=== PATIENT | female | born 1945 | race Caucasian/White ===

== ENCOUNTER 2019-01-21 15:55 | Emergency (ER) | payer MEDICARE, OTHER ==
--- NOTE | 2019-01-21 16:17 | ERPHSYRPT ---
- History of Present Illness Time Seen by Provider: 01/21/19 16:17 Source: patient Exam Limitations: no limitations Patient Subjective Stated Complaint: states had elevated blood sugar today. took her evening dm med at 3pm today Triage Nursing Assessment: ambulated to room per self. skin w/d, color normal, resp nonlabored. Physician History: c/o blood sugar running high around 400 today, took her 3 pm diabetes medicine. recently started on prednisone for ear problems two days ago Timing/Duration: today Associated Symptoms: denies symptoms Allergies/Adverse Reactions: No Known Drug Allergies Allergy (Verified 01/21/19 16:02) Home Medications: Carvedilol 25 mg PO DAILY 06/01/12 [History] Lisinopril/Hydrochlorothiazide [Lisinopril-Hctz 20-25 mg Tab] 30 mg PO DAILY [History] Potassium Gluconate 99 mg PO BID 08/14/15 [History] Acetaminophen [Tylenol Arthritis] 650 mg PO BID 01/21/19 [History] Alendronate Sodium 70 mg [Fosamax 70 MG] 70 mg PO Q7D@0600 01/21/19 [ History] Amlodipine Besylate 5 mg PO DAILY 01/21/19 [History] Ascorbic Acid 500 mg [Vitamin C 500 MG] 1,000 mg PO DAILY 01/21/19 [ History] Aspirin EC 325 mg [Ecotrin 325 MG] 325 mg PO HS 01/21/19 [History] Bisacodyl 5 mg [Dulcolax 5 mg] 5 mg PO BID 01/21/19 [History] Cannabidiol (Cbd) Extract [Epidiolex] 2 sprays PO DAILY 01/21/19 [History] Gabapentin 300 mg PO TID 01/21/19 [History] Glipizide [Glipizide ER] 10 mg PO DAILY 01/21/19 [History] Linagliptin [Tradjenta] 5 mg PO HS 01/21/19 [History] Loratadine 10 mg [Claritin 10 mg] 10 mg PO DAILY 01/21/19 [History] Magnesium Oxide 400 mg [Mag-Ox 400] 400 mg PO HS 01/21/19 [History] Meclizine HCl 12.5 mg PO BID 01/21/19 [History] Multivitamin/Folic Acid/Biotin [Hair, Skin and Nails Tablet] 1 each PO TID 01/21 [History] PANTOPRAZOLE 40 mg Tablet [Protonix 40MG Tablet] 40 mg PO QAM 01/21/19 [ History] Pediatric Multivitamin No.42 [Flintstones] 1 each PO DAILY 01/21/19 [History] Pitavastatin Calcium [Livalo] 4 mg PO HS 01/21/19 [History] Prednisone 20 mg [Deltasone 20 mg] 20 mg PO BID 01/21/19 [History] Hx Tetanus, Diphtheria Vaccination/Date Given: No Hx Influenza Vaccination/Date Given: Yes Hx Pneumococcal Vaccination/Date Given: Yes - Review of Systems Constitutional: No Fever, No Chills Eyes: No Symptoms Ears, Nose, & Throat: No Symptoms Respiratory: No Cough, No Dyspnea Cardiac: No Chest Pain, No Edema, No Syncope Abdominal/Gastrointestinal: No Abdominal Pain, No Nausea, No Vomiting, No Diarrhea Genitourinary Symptoms: No Dysuria Musculoskeletal: No Back Pain, No Neck Pain Skin: No Rash Neurological: No Dizziness, No Focal Weakness, No Sensory Changes Psychological: No Symptoms Endocrine: No Symptoms All Other Systems: Reviewed and Negative - Past Medical History Pertinent Past Medical History: Yes Neurological History: No Pertinent History Cardiac History: High Cholesterol, Hypertension Respiratory History: No Pertinent History Endocrine Medical History: Diabetes Type II Musculoskeletal History: Arthritis, Fractures, Osteoporosis GI Medical History: Diverticulitis - Past Surgical History Past Surgical History: Yes Gastrointestinal: Appendectomy, Cholecystectomy Female Surgical History: Hysterectomy, Tubal Ligation Other Surgical History: eye surg,retanal detachment, - Social History Smoking Status: Former smoker Exposure to second hand smoke: No Drug Use: none Patient Lives Alone: Yes - Female History Hx Now: No - Nursing Vital Signs Nursing Vital Signs: Initial Vital Signs Temperature 97 F 01/21/19 15:57 Pulse Rate 86 01/21/19 15:57 Respiratory Rate 16 01/21/19 15:57 Blood Pressure 153/67 01/21/19 15:57 O2 Sat by Pulse Oximetry 96 01/21/19 15:57 Pain Scale Pain Intensity 0 - Physical Exam General Appearance: no apparent distress, alert Eye Exam: PERRL/EOMI, eyes nml inspection Ears, Nose, Throat Exam: normal ENT inspection, TMs normal, pharynx normal, moist mucous membranes Neck Exam: normal inspection, non-tender, supple, full range of motion Respiratory Exam: normal breath sounds, lungs clear, No respiratory distress Cardiovascular Exam: regular rate/rhythm, normal heart sounds, normal peripheral pulses Gastrointestinal/Abdomen Exam: soft, normal bowel sounds, No tenderness, No mass Back Exam: normal inspection, normal range of motion, No CVA tenderness, No vertebral tenderness Extremity Exam: normal inspection, normal range of motion, pelvis stable Neurologic Exam: alert, oriented x 3, cooperative, normal mood/affect, nml cerebellar function, nml station & gait, sensation nml, No motor deficits Skin Exam: normal color, warm, dry, No rash Lymphatic Exam: No adenopathy SpO2: 96 - Course Nursing assessment & vital signs reviewed: Yes Ordered Tests: Active Orders 24 hr Category Date Time Status CBC W DIFF Stat Lab 01/21/19 17:10 Completed CMP Stat Lab 01/21/19 17:10 Completed Medication Summary Discontinued Medications Generic Name Dose Route Start Last Admin Trade Name Donnieq PRN Reason Stop Dose Admin Sodium Chloride 1,000 mls @ 999 mls/hr 01/21/19 16:24 01/21/19 17:30 Sodium Chloride 0.9% 1000 Ml IV 01/21/19 17:24 Infused .Q1H1M STA Infusion Sodium Chloride Confirm 01/21/19 16:27 Sodium Chloride 0.9% 1000 Ml Administered 01/21/19 16:28 Dose 1,000 mls @ ud .ROUTE .STK-MED ONE Insulin Human Regular 10 unit 01/21/19 16:24 01/21/19 16:29 Novolin R IV 01/21/19 16:25 10 unit STAT ONE Administration Insulin Human Regular Confirm 01/21/19 16:26 Novolin R Administered 01/21/19 16:27 Dose 10 unit .ROUTE .STK-MED ONE Insulin Human Regular 5 unit 01/21/19 17:38 01/21/19 17:41 Novolin R IV 01/21/19 17:39 5 unit STAT ONE Administration Insulin Human Regular Confirm 01/21/19 17:40 Novolin R Administered 01/21/19 17:41 Dose 5 unit .ROUTE .STK-MED ONE Lab/Rad Data: Laboratory Result Diagrams 01/21/19 17:10 01/21/19 17:10 Laboratory Results 01/21/19 01/21/19 Range/Units 17:10 17:10 WBC 12.4 H (4.0-10.5) K/mm3 RBC 3.91 L (4.1-5.4) M/mm3 Hgb 12.5 (12.0-16.0) gm/dl Hct 37.4 (35-47) % MCV 95.7 (78-100) fl MCH 31.9 (26-32) pg MCHC 33.4 (32-36) g/dl RDW 12.8 (11.5-14.0) % Plt Count 265 (150-450) K/mm3 MPV 11.3 H (6-9.5) fl Gran % 81.3 H (36.0-66.0) % Eos # (Auto) 0.01 (0-0.5) Absolute Lymphs (auto) 1.58 (1.0-4.6) Absolute Monos (auto) 0.72 (0.0-1.3) Lymphocytes % 12.7 L (24.0-44.0) % Monocytes % 5.8 (0.0-12.0) % Eosinophils % 0.1 (0.00-5.0) % Basophils % 0.1 (0.0-0.4) % Absolute Granulocytes 10.11 H (1.4-6.9) Basophils # 0.01 (0-0.4) Sodium 136 L (137-145) mmol/L Potassium 3.9 (3.5-5.1) mmol/L Chloride 101 (98-107) mmol/L Carbon Dioxide 25 (22-30) mmol/L Anion Gap 14.5 (5-15) MEQ/L BUN 17 (7-17) mg/dL Creatinine 0.85 (0.52-1.04) mg/dL Estimated GFR > 60.0 ML/MIN Glucose 375 H (74-106) mg/dL Calcium 9.4 (8.4-10.2) mg/dL Total Bilirubin 0.50 (0.2-1.3) mg/dL AST 27 (14-36) U/L ALT 32 (0-35) U/L Alkaline Phosphatase 84 (38-126) U/L Serum Total Protein 7.3 (6.3-8.2) g/dL Albumin 4.1 (3.5-5.0) g/dL - Progress Progress: improved Counseled pt/family regarding: lab results, diagnosis, need for follow-up - Departure Departure Disposition: Home Clinical Impression: Hyperglycemia, drug-induced Hyperglycemia due to type 2 diabetes mellitus Qualifiers: Diabetes mellitus intermodal owner operator truck driver insulin use: without intermodal owner operator truck driver use Qualified Code(s ): E11.65 - Type 2 diabetes mellitus with hyperglycemia Condition: Stable Critical Care Time: No Referrals: EDI WHELAN [Primary Care Provider] - Instructions: Hyperglycemia, Adult (DC), Steroid Medicines Additional Instructions: OLLIEGARY MCCLURE was seen on 01/21/19 n the Emergency Room. At that time you were treated for an emergent condition, during your visit Laboratory, Radiology and/or other procedures may have been ordered. It is very important that you follow-up with your Primary Care Physician EDI WHELAN within the next 24-48 hours to review your Emergency Room visit and the final results of testing that was ordered. Some test results such as Urine Cultures, Blood Cultures, and other cultures if ordered will not be finalized for 24-48 hours. If you do not have a Primary Care Provider please call the medical records department at [phone] ext [phone] to obtain a copy of your results or you may sign into our patient portal to obtain these results by visiting us @ [email or web address] and completing the following steps: 1. Click on the Patient Portal link 2. Click the Patient Self Enrollment Link to complete the enrollment form and entering your 3. Once the enrollment form is completed you will receive an email with a temporary ID and password at the email address you provided. 4. Next choose a user name and password. Your user name must be at least 4 characters long and your password must be at least 4 characters long. 5. Choose a security question from the list and provide your answer to the question. If you already have signed into the Health Portal you may access your Health Care Information 05/10 by the following steps: 1. Login to our website @ [email or web address] 2. Enter your original user name and password. FAQS The [facility] Health Portal is an online tool that contains your Lab Results, Radiology Reports, Visit History, Discharge Instructions and Health Summary Lab and Radiology Results will not be available for 72 hours on the portal. The Portal is a secure site, passwords are encryted and URLs are re-written so they cannot be copied and pasted. You and authorized family members are the only ones who can access your Portal. Also there is a timeout feature that protects your information if you leave the Portal page open. If you have technical difficulty please use the Contact Us link on the page this will allow you to submit any questions you have regarding the Portal or you may contact the Medical Record Department at [phone] ext [phone]. Discharge/Care Plan GARY LEVIN was seen on 01/21/19 in the Emergency Room. The patient was counseled regarding Diagnosis,Lab results, Imaging studies, need for follow up and when to return to the Emergency Room. Prescriptions given: Discharge Note I have spoken with the patient and/or caregivers. I have explained the patient' s condition, diagnosis and treatment plan based on the information available to me at this time. I have answered the patient's and/or caregiver's questions and addressed any concerns. The patient and/or caregivers have as good understanding of the patient's diagnosis, condition and treatment plan as can be expected at this point. The vital signs have been stable. The patient's condition is stable and appropriate for discharge from the emergency department. The patient will pursue further outpatient evaluation with the primary care physician or other designated or consulting physician as outlined in the discharge instructions. The patient and/or caregivers are agreeable to this plan of care and follow-up instructions have been explained in detail. The patient and/or caregivers have received these instruction. The patient/and or caregivers are aware that any significant change in condition or worsening of symptoms should prompt an immediate return to this or the closest emergency department or call 911.
[2019-01-21] MEDS ORDERED: Sodium Chloride 0.9% 1000 ML 1,000 ML IV STA (16:24)
[2019-01-21] MEDS ORDERED: NovoLIN R IV ONE ×2 (16:24→17:38)
[2019-01-21] MEDS ORDERED: NovoLIN R ONE ×2 (16:26→17:40)
[2019-01-21] MEDS ORDERED: Sodium Chloride 0.9% 1000 ML 1,000 ML ONE (16:27)
[2019-01-21 17:17] LABS: Absolute Neutrophil Ct (ANC) 10.11 (1.4-6.9); BASOPHIL % 0.1 % (0.0-0.4); Basophil (Absolute #) 0.01 (0-0.4); Eosinophil % 0.1 % (0.00-5.0); Eosinophil (Absolute #) 0.01 (0-0.5); Hematocrit 37.4 % (35-47); Hemoglobin 12.5 gm/dl (12.0-16.0); Lymphocyte (Absolute #) 1.58 (1.0-4.6); Lymphocytes % 12.7 % (24.0-44.0); Mean Cell Volume 95.7 fl (78-100); Mean Corpuscular Hemoglobin 31.9 pg (26-32); Mean Corpuscular Hgb Concent. 33.4 g/dl (32-36); Mean Platelet Volume 11.3 fl (6-9.5); Monocyte (Absolute #) 0.72 (0.0-1.3); Monocytes % 5.8 % (0.0-12.0); Neutrophil % 81.3 % (36.0-66.0); Platelet Count 265 K/mm3 (150-450); Red Blood Count 3.91 M/mm3 (4.1-5.4); Red Cell Distribution Width 12.8 % (11.5-14.0); White Blood Count 12.4 K/mm3 (4.0-10.5)
[2019-01-21 17:26] LABS: ALBUMIN 4.1 g/dL (3.5-5.0); ALKALINE PHOSPHATASE 84 U/L (38-126); ANION GAP 14.5 MEQ/L (5-15); BLOOD UREA NITROGEN 17 mg/dL (7-17); CHLORIDE 101 mmol/L (98-107); Calcium 9.4 mg/dL (8.4-10.2); Carbon Dioxide 25 mmol/L (22-30); Creatinine 1 0.85 mg/dL (0.52-1.04); Glucose 375 mg/dL (74-106); Potassium 3.9 mmol/L (3.5-5.1); SGOT/AST 27 U/L (14-36); SGPT/ALT 32 U/L (0-35); SODIUM 136 mmol/L (137-145); Total Protein 7.3 g/dL (6.3-8.2)
[2019-01-21 17:59] VITALS: BP 108/53; PULSE 82; O2SAT 97
== END 2019-01-21 18:14 | disposition home or self-care (01) ==
LOC: ED 15:55
DX: E11.65 Type 2 diabetes mellitus with hyperglycemia (principal); Z79.899 Other long term (current) drug therapy
CPT/HCPCS: 36000; 36415; 80053; 82962; 85025; 96360; 96374; 96375; 96376; 99284; A9270-GY

== ENCOUNTER 2020-03-30 08:33 | Emergency (ER) | payer MEDICARE, OTHER ==
[2020-03-30] MEDS ORDERED: TORAdol 30 mg Injection IM ONE (08:46)
[2020-03-30] MEDS ORDERED: TORAdol 30 mg Injection ONE (08:48)
--- NOTE | 2020-03-30 10:42 | ERPHSYRPT ---
- History of Present Illness Time Seen by Provider: 03/30/20 08:40 Patient Subjective Stated Complaint: fall-left hip, knee and leg pain Triage Nursing Assessment: Patient brought back to ED via w/c and transferred to bed with assist of 1. Patient A+O X3. Patient's skin pink, warm and dry. Patient complains of left hip, left knee and left lower leg pain 8/10 constant aching. Patient states she tripped fell yesterday around lunchtime falling on her right side causing her left leg to go straight in the air. Patient unable to bear weight. No visible injuries noted to left leg. No shortening or rotating of extremity noted. Physician History: 74 years old female presented in the ER with chief complaint of fall yesterday when she tripped and fell on right hip. Patient report her left lower extremity went up in the ear. Did not hit her head. No loss of consciousness. She has this bruise contusion on the right hip but is having very painful movements at left hip causing it difficult to have weightbearing. Did not hit her left hip directly. No back pain. No numbness tingling weakness of lower extremities. No loss of bowel or bladder control. Occurred: yesterday Reason for Fall: tripped Injuries/Pain Location: lower extremity Loss of Consciousness: no loss of consciousness Quality: sharpness Severity of Pain-Max: severe Severity of Pain-Current: severe Modifying Factors: Improves With: immobilization, rest. Worsens With: movement Associated Symptoms (Fall): extremity injury, trouble walking, No back pain, No chest pain, No dizziness, No headache, No lightheadedness, No muscle spasms, No nausea, No neck pain, No shortness of breath, No slurred speech, No vision changes Allergies/Adverse Reactions: No Known Drug Allergies Allergy (Verified 03/30/20 08:38) Home Medications: Carvedilol 25 mg PO DAILY 06/01/12 [History] Lisinopril/Hydrochlorothiazide [Lisinopril-Hctz 20-25 mg Tab] 30 mg PO DAILY 06/01/12 [History] Potassium Gluconate 99 mg PO BID 08/14/15 [History] Acetaminophen [Tylenol Arthritis] 650 mg PO BID 01/21/19 [History] Alendronate Sodium 70 mg [Fosamax 70 MG] 70 mg PO Q7D@0600 01/21/19 [History] Amlodipine Besylate 5 mg PO DAILY 01/21/19 [History] Ascorbic Acid 500 mg [Vitamin C 500 MG] 1,000 mg PO DAILY 01/21/19 [History] Aspirin EC 325 mg [Ecotrin 325 MG] 325 mg PO HS 01/21/19 [History] Bisacodyl 5 mg [Dulcolax 5 mg] 5 mg PO BID 01/21/19 [History] Cannabidiol (Cbd) [Epidiolex] 2 sprays PO DAILY 01/21/19 [History] Gabapentin 300 mg PO TID 01/21/19 [History] Glipizide [Glipizide ER] 10 mg PO DAILY 01/21/19 [History] Linagliptin [Tradjenta] 5 mg PO HS 01/21/19 [History] Loratadine 10 mg [Claritin 10 mg] 10 mg PO DAILY 01/21/19 [History] Magnesium Oxide 400 mg [Mag-Ox 400] 400 mg PO HS 01/21/19 [History] Meclizine HCl 12.5 mg PO BID 01/21/19 [History] Multivitamin/Folic Acid/Biotin [Hair, Skin and Nails Tablet] 1 each PO TID 01/21/19 [History] PANTOPRAZOLE 40 mg Tablet [Protonix 40MG Tablet] 40 mg PO QAM 01/21/19 [History] Pediatric Multivitamin No.42 [Flintstones] 1 each PO DAILY 01/21/19 [History] Pitavastatin Calcium [Livalo] 4 mg PO HS 01/21/19 [History] Prednisone 20 mg [Deltasone 20 mg] 20 mg PO BID 01/21/19 [History] Hx Tetanus, Diphtheria Vaccination/Date Given: No Hx Influenza Vaccination/Date Given: Yes Hx Pneumococcal Vaccination/Date Given: Yes Immunizations Up to Date: Yes Travel Risk - International Travel Have you traveled outside of the country in past 3 weeks: No - Coronavirus Screening Are you exhibiting any of the following symptoms?: No Close contact with a COVID-19 positive Pt in past 14-21 Days: No - Review of Systems Constitutional: No Symptoms Eyes: No Symptoms Ears, Nose, & Throat: No Symptoms Respiratory: No Symptoms Cardiac: No Symptoms Abdominal/Gastrointestinal: No Symptoms Genitourinary Symptoms: No Symptoms Musculoskeletal: Injury Skin: Rash Neurological: No Symptoms Psychological: No Symptoms Endocrine: No Symptoms Hematologic/Lymphatic: No Symptoms Immunological/Allergic: No Symptoms - Past Medical History Pertinent Past Medical History: Yes Neurological History: No Pertinent History Cardiac History: High Cholesterol, Hypertension Respiratory History: No Pertinent History Endocrine Medical History: Diabetes Type II Musculoskeletal History: Arthritis, Fractures, Osteoporosis GI Medical History: Diverticulitis - Past Surgical History Past Surgical History: Yes Gastrointestinal: Appendectomy, Cholecystectomy Female Surgical History: Hysterectomy, Tubal Ligation Other Surgical History: eye surg,retanal detachment, - Social History Smoking Status: Former smoker Exposure to second hand smoke: No Drug Use: none Patient Lives Alone: Yes - Female History Hx Now: No - Nursing Vital Signs Nursing Vital Signs: Initial Vital Signs Temperature 97.9 F 03/30/20 08:38 Pulse Rate 78 03/30/20 08:38 Respiratory Rate 18 03/30/20 08:38 Blood Pressure 134/80 03/30/20 08:38 O2 Sat by Pulse Oximetry 95 03/30/20 08:38 Pain Scale Pain Intensity 7 - Jody Coma Score Best Eye Response ([place]): (4) open spontaneously Best Verbal Response ([place]): (5) oriented Best Motor Response ([place]ody): (6) obeys commands [place] Total: 15 - Physical Exam General Appearance: no apparent distress Head Injury: no evidence of injury Eye Exam: PERRL/EOMI, eyes nml inspection, scleral icterus ENT Exam: airway nml, No evidence of ENT injury Neck Exam: supple, trachea midline, full range of motion, normal alignment, normal inspection Respiratory/Chest Exam: normal breath sounds, respiratory distress, No chest tenderness Cardiovascular Exam: normal heart sounds, regular rate/rhythm Gastrointestinal Exam: soft, normal bowel sounds, No tenderness Back Exam: normal inspection, normal range of motion, No CVA tenderness Extremity Exam: contusions (Right hip), hip tenderness (Right and left hips), pain with movement (Hips), tenderness, other (No pain with movements of her right hip. Painful movements at the left hip. Movements of left hip are limited due to pain. Point tenderness greater trochanteric area), No calf tenderness, No weight bearing Neurologic Exam: alert, oriented x 3, cooperative Skin Exam: normal color SpO2 Interpretation: normal SpO2: 95 O2 Delivery: Room Air Ordered Tests: Active Orders 24 hr Category Date Time Status HIP GISELA (4V) INCL PELV IF DONE Stat Exams 03/30/20 09:31 Taken Medication Summary Discontinued Medications Generic Name Dose Route Start Last Admin Trade Name Rosita PRN Reason Stop Dose Admin Ketorolac Tromethamine 30 mg 03/30/20 08:46 03/30/20 08:51 Toradol 30 Mg Injection IM 03/30/20 08:47 30 mg STAT ONE Administration Ketorolac Tromethamine Confirm 03/30/20 08:48 Toradol 30 Mg Injection Administered 03/30/20 08:49 Dose 30 mg .ROUTE .STK-MED ONE - Progress Progress: improved, pain not gone completely Progress Note: 03/30/20 10:40 She is given Toradol as patient does not want any narcotic pain medication, on reevaluation her pain is better but not completely improved. X-rays did not show any obvious fracture dislocation. I believe patient has a strain on the left hip and contusion on the right hip. Recommended ice, Tylenol ibuprofen as needed, weightbearing as tolerated and using walker. Outpatient follow-up with Ortho clinic for reevaluation. - Departure Departure Disposition: Home Clinical Impression: Contusion of right hip Qualifiers: Encounter type: initial encounter Qualified Code(s): S70.01XA - Contusion of right hip, initial encounter Strain of left hip Qualifiers: Encounter type: initial encounter Qualified Code(s): S76.012A - Strain of muscle, fascia and tendon of left hip, initial encounter Fall Qualifiers: Encounter type: initial encounter Qualified Code(s): W19.XXXA - Unspecified fall, initial encounter Condition: Stable Critical Care Time: No Referrals: EDI WHELAN [Primary Care Provider] - Follow Up with PCP/3 days OTILIA CASTRO NP [NON-STAFF PHY W/O PRIVILEGES] - (In 2 days for reevaluation) Instructions: Contusion (DC), Preventing Falls Additional Instructions: Apply ice. Take Tylenol/ibuprofen as needed for pain. Use walker all the time for ambulation. Weightbearing only as tolerated. Follow-up with primary care and Ortho clinic for reevaluation in 2 days/early Wednesday morning. Return to ER for worsening pain, difficulty movements etc.
[2020-03-30 11:31] VITALS: BP 115/57; PULSE 70; O2SAT 94
--- NOTE | 2020-03-30 17:01 | XRAY ---
Indication: Pain following fall. Comparison: None AP pelvis and 2 view left and right hip demonstrates bilateral greater trochanteric spurring/heterotopic ossifications, mild lower lumbar degenerative spondylosis, and a few right pelvic phleboliths all similar in appearance to CT abdomen/pelvis August 14, 2015. No other bony, articular, or soft tissue abnormalities. Comment: Preliminary interpretation was made by [facility]. No critical discrepancy.
== END 2020-03-30 11:35 | disposition home or self-care (01) ==
LOC: ED 08:33
DX: S70.01XA Contusion of right hip, initial encounter (principal); S76.012A Strain of muscle, fascia and tendon of left hip, initial encounter; M25.552 Pain in left hip; M25.562 Pain in left knee; M79.605 Pain in left leg; W01.0XXA Fall on same level from slipping, tripping and stumbling without subsequent striking against object, initial encounter
CPT/HCPCS: 73522; 96372; 99284; J1885

== ENCOUNTER 2021-03-09 08:44 | Emergency (ER) | payer MEDICARE, OTHER ==
--- NOTE | 2021-03-09 08:57 | ERPHSYRPT ---
- History of Present Illness Time Seen by Provider: 03/09/21 08:57 Source: patient Exam Limitations: no limitations Physician History: This is a 75-year-old obese white female patient of Dr. Varner who has recurrent urinary tract infections. She is having dysuria, suprapubic tenderness and flank pain. This started 2 days ago the patient began using [id number] Azo products. Patient has a history of gastroesophageal reflux disease, hypertension and diabetes. She denies chest pain. She denies shortness of breath. She is convinced that this is a urinary tract infection and does not want extensive work-up if the urinalysis comes back positive. Timing/Duration: day(s) (2) Activites at Onset: none Quality: burning Onset Location: suprapubic, generalized flank Severity of Pain-Max: mild Severity of Pain-Current: mild Sexual intercourse history: non-contributory Modifying Factors: Improves With: nothing Associated Symptoms: dysuria, urinary frequency, No fever, No chills Allergies/Adverse Reactions: No Known Drug Allergies Allergy (Verified 03/09/21 09:23) Home Medications: Carvedilol 25 mg PO DAILY 06/01/12 [History] Lisinopril/Hydrochlorothiazide [Lisinopril-Hctz 20-25 mg Tab] 30 mg PO DAILY 06/01/12 [History] Potassium Gluconate 99 mg PO BID 08/14/15 [History] Acetaminophen [Tylenol Arthritis] 650 mg PO BID 01/21/19 [History] Alendronate Sodium 70 mg [Fosamax 70 MG] 70 mg PO Q7D@0600 01/21/19 [History] Amlodipine Besylate 5 mg PO DAILY 01/21/19 [History] Ascorbic Acid 500 mg [Vitamin C 500 MG] 1,000 mg PO DAILY 01/21/19 [History] Aspirin EC 325 mg [Ecotrin 325 MG] 325 mg PO HS 01/21/19 [History] Bisacodyl 5 mg [Dulcolax 5 mg] 5 mg PO BID 01/21/19 [History] Cannabidiol (Cbd) [Epidiolex] 2 sprays PO DAILY 01/21/19 [History] Gabapentin 300 mg PO TID 01/21/19 [History] Glipizide [Glipizide ER] 10 mg PO DAILY 01/21/19 [History] Linagliptin [Tradjenta] 5 mg PO HS 01/21/19 [History] Loratadine 10 mg [Claritin 10 mg] 10 mg PO DAILY 01/21/19 [History] Magnesium Oxide 400 mg [Mag-Ox 400] 400 mg PO HS 01/21/19 [History] Meclizine HCl 12.5 mg PO BID 01/21/19 [History] Multivitamin/Folic Acid/Biotin [Hair, Skin and Nails Tablet] 1 each PO TID 01/21/19 [History] PANTOPRAZOLE 40 mg Tablet [Protonix 40MG Tablet] 40 mg PO QAM 01/21/19 [History] Pediatric Multivitamin No.42 [Flintstones] 1 each PO DAILY 01/21/19 [History] Pitavastatin Calcium [Livalo] 4 mg PO HS 01/21/19 [History] Prednisone 20 mg [Deltasone 20 mg] 20 mg PO BID 01/21/19 [History] Chlorthalidone 12.5 mg PO DAILY 03/09/21 [History] Isosorbide Mononitrate 30 mg [Imdur 30 MG] 30 mg PO DAILY 03/09/21 [History] Hx Tetanus, Diphtheria Vaccination/Date Given: No Hx Influenza Vaccination/Date Given: Yes Hx Pneumococcal Vaccination/Date Given: Yes Travel Risk - International Travel Have you traveled outside of the country in past 3 weeks: No - Coronavirus Screening Are you exhibiting any of the following symptoms?: No Close contact with a COVID-19 positive Pt in past 14-21 Days: No - Review of Systems Constitutional: No Symptoms Eyes: No Symptoms Ears, Nose, & Throat: No Symptoms Respiratory: No Symptoms Cardiac: No Symptoms Abdominal/Gastrointestinal: Abdominal Pain (Mild suprapubic) Genitourinary Symptoms: Dysuria, Frequency, Flank Pain (Bilateral) Musculoskeletal: No Symptoms Skin: No Symptoms Neurological: No Symptoms Psychological: No Symptoms Endocrine: No Symptoms Hematologic/Lymphatic: No Symptoms Immunological/Allergic: No Symptoms All Other Systems: Reviewed and Negative - Past Medical History Pertinent Past Medical History: Yes Neurological History: No Pertinent History Cardiac History: High Cholesterol, Hypertension Respiratory History: No Pertinent History Endocrine Medical History: Diabetes Type II Musculoskeletal History: Arthritis, Fractures, Osteoporosis GI Medical History: Diverticulitis - Past Surgical History Past Surgical History: Yes Gastrointestinal: Appendectomy, Cholecystectomy Female Surgical History: Hysterectomy, Tubal Ligation Other Surgical History: eye surg,retanal detachment, - Social History Smoking Status: Former smoker Exposure to second hand smoke: No Drug Use: none Patient Lives Alone: Yes - Nursing Vital Signs Nursing Vital Signs: Initial Vital Signs Temperature 98.0 F 03/09/21 08:54 Pulse Rate 83 03/09/21 08:54 Respiratory Rate 20 03/09/21 08:54 Blood Pressure 134/60 03/09/21 08:54 O2 Sat by Pulse Oximetry 97 03/09/21 08:54 Pain Scale Pain Intensity 6 - Physical Exam General Appearance: no apparent distress, alert, anxiety, obese Eye Exam: PERRL/EOMI, eyes nml inspection Ears, Nose, Throat Exam: normal ENT inspection, moist mucous membranes Neck Exam: normal inspection, non-tender, supple, full range of motion Respiratory Exam: normal breath sounds, lungs clear, airway intact, No chest tenderness, No respiratory distress Cardiovascular Exam: regular rate/rhythm, normal heart sounds, normal peripheral pulses Gastrointestinal/Abdomen Exam: soft, normal bowel sounds, tenderness (Very mild tenderness in the suprapubic region to palpation.), No guarding, No pulsatile mass, No rebound Pelvic Exam: not done Rectal Exam: not done Back Exam: normal inspection, normal range of motion, CVA tenderness (Mild bilateral), No vertebral tenderness Extremity Exam: normal inspection, normal range of motion, pelvis stable Neurologic Exam: alert, oriented x 3, cooperative, credit manager II-XII nml as tested, normal mood/affect, nml cerebellar function, nml station & gait, sensation nml Skin Exam: normal color, warm, dry Lymphatic Exam: No adenopathy SpO2 Interpretation: normal O2 Delivery: Room Air - Course Nursing assessment & vital signs reviewed: Yes Ordered Tests: Active Orders 24 hr Category Date Time Status CULTURE,URINE Stat Lab 03/09/21 09:26 Received UA W/RFX UR CULTURE Stat Lab 03/09/21 09:26 Completed Medication Summary Discontinued Medications Generic Name Dose Route Start Last Admin Trade Name Freq PRN Reason Stop Dose Admin Ceftriaxone Sodium 1,000 mg 03/09/21 10:26 Ceftriaxone Sodium 1000 Mg Inj Vial IM 03/09/21 10:27 STAT ONE Levofloxacin 500 mg 03/09/21 10:25 Levofloxacin 500 Mg Tablet PO 03/09/21 10:26 STAT ONE Phenazopyridine HCl 200 mg 03/09/21 10:27 Phenazopyridine Hcl 200 Mg Tablet PO 03/09/21 10:28 STAT ONE Lab/Rad Data: Laboratory Results 03/09/21 Range/Units 09:26 Urine Color RED (YELLOW) Urine Appearance TURBID (CLEAR) Urine pH 5.0 (5-6) Ur Specific [place] 1.021 (1.005-1.025) Urine Protein 100 (Negative) Urine Ketones NEGATIVE (NEGATIVE) Urine Blood MODERATE (0-5) Pavel/ul Urine Nitrite POSITIVE (NEGATIVE) Urine Bilirubin NEGATIVE (NEGATIVE) Urine Urobilinogen 2 (0-1) mg/dL Ur Leukocyte Esterase SMALL (NEGATIVE) Urine WBC (Auto) >100 (0-5) /HPF Urine RBC (Auto) >101 (0-2) /HPF Urine Mucus (Auto) SLIGHT (NEGATIVE) /HPF Urine Culture Reflexed YES (NO) Urine Glucose >=500 (NEGATIVE) mg/dL - Progress Progress: unchanged Air Movement: good Blood Culture(s) Obtained: No Antibiotics given: Yes Counseled pt/family regarding: lab results, diagnosis, need for follow-up - Departure Departure Disposition: Home Clinical Impression: UTI (urinary tract infection) Condition: Stable Critical Care Time: No Referrals: JEET VARNER MD [Primary Care Provider] - Follow up/PCP as directed Additional Instructions: Drink plenty of fluids. Take your medication as prescribed. Follow-up with your prescribing doctor for further management. Prescriptions: Ciprofloxacin [Cipro 500 MG] 500 mg PO BID #14 tablet Phenazopyridine HCl 200 mg [Pyridium 200 mg] 200 mg PO TID #6 tablet
[2021-03-09 09:56] LABS: Appearance TURBID (CLEAR); Bilirubin NEGATIVE (NEGATIVE); Blood MODERATE Ery/ul (0-5); Glucose >=500 mg/dL (NEGATIVE); Ketones NEGATIVE (NEGATIVE); Leukocyte Esterase SMALL (NEGATIVE); Mucus SLIGHT /HPF (NEGATIVE); Nitrite POSITIVE (NEGATIVE); Protein,Urine Dip 100 (Negative); Specific Gravity 1.021 (1.005-1.025); Urobilinogen 2 mg/dL (0-1); WBC >100 /HPF (0-5)
[2021-03-09 10:13] LABS: RBC >101 /HPF (0-2)
[2021-03-09] MEDS ORDERED: Levofloxacin 500 MG Tablet PO ONE (10:25)
[2021-03-09] MEDS ORDERED: Rocephin 1000 MG INJ IM ONE (10:26)
[2021-03-09] MEDS ORDERED: PYRIDIUM 200 MG PO ONE (10:27)
[2021-03-09] MEDS ORDERED: Levofloxacin 500 MG Tablet ONE (10:33)
[2021-03-09] MEDS ORDERED: XYLOCAINE 1% HCL 20 ML MDV ONE (10:34)
[2021-03-09] MEDS ORDERED: PYRIDIUM 200 MG ONE (10:34)
[2021-03-09] MEDS ORDERED: Rocephin 1000 MG INJ ONE (10:34)
[2021-03-09 11:13] VITALS: BP 126/76; PULSE 72; O2SAT 98
== END 2021-03-09 11:12 | disposition home or self-care (01) ==
LOC: ED 08:44
DX: N39.0 Urinary tract infection, site not specified (principal); R10.30 Lower abdominal pain, unspecified; R35.0 Frequency of micturition; E78.5 Hyperlipidemia, unspecified; I10 Essential (primary) hypertension; E11.9 Type 2 diabetes mellitus without complications; Z79.84 Long term (current) use of oral hypoglycemic drugs; Z79.52 Long term (current) use of systemic steroids; Z79.899 Other long term (current) drug therapy
CPT/HCPCS: 81001; 87077; 87086; 87186; 96372; 99284; J0696; A9270-GY

== ENCOUNTER 2023-02-08 10:25 | Emergency (ER) | payer MEDICARE, OTHER ==
[2023-02-08 10:59] VITALS: TEMP 97.3
--- NOTE | 2023-02-08 11:10 | ERPHSYRPT ---
- History of Present Illness Source: patient Exam Limitations: no limitations Patient Subjective Stated Complaint: C/O right shoulder pain after a fall this am. Patient states she fell off of curb. Denies hitting her head or dizziness. States, "I just wasn't paying attention." Triage Nursing Assessment: Patient ambulated back to ER without difficulties. No SOB. Skin tone normal. Patient able to take off shirt and place gown on per self. Right shoulder is tender to touch. Right side distal to armpit in right upper rib area also tender. No skin alterations, bruising, or swelling noted. Physician History: Patient is a 77-year-old female who tripped and fell at the local [employer] this morning and now complains of right shoulder and right thoracic pain. Pain is 7 out of 10. She is right-handed ,and shoulder pain is worse with movement. She denies any head injury, loss of consciousness, cervical pain, T and L-spine pain, hip/pelvic pain, and lower extremity pain. She denies any syncope and states that the fall was just due to her tripping. Patient refused any pain meds after history and physical exam. Occurred: this morning Reason for Fall: tripped Injuries/Pain Location: upper extremity, chest (Right lateral thoracic area.) Loss of Consciousness: no loss of consciousness Severity of Pain-Max: moderate Severity of Pain-Current: moderate Modifying Factors: Improves With: movement Associated Symptoms (Fall): denies symptoms Allergies/Adverse Reactions: No Known Drug Allergies Allergy (Verified 02/08/23 10:41) Home Medications: Carvedilol 25 mg PO DAILY 06/01/12 [History] Lisinopril/Hydrochlorothiazide [Lisinopril-Hctz 20-25 mg Tab] 30 mg PO DAILY 06/01/12 [History] Potassium Gluconate 99 mg PO BID 08/14/15 [History] Acetaminophen [Tylenol Arthritis] 650 mg PO BID 01/21/19 [History] Ascorbic Acid 500 mg [Vitamin C 500 MG] 1,000 mg PO DAILY 01/21/19 [History] Aspirin EC 325 mg [Ecotrin 325 MG] 325 mg PO HS 01/21/19 [History] Cannabidiol (Cbd) [Epidiolex] 2 sprays PO DAILY 01/21/19 [History] Gabapentin 300 mg PO TID 01/21/19 [History] Magnesium Oxide 400 mg [Mag-Ox 400] 400 mg PO HS 01/21/19 [History] PANTOPRAZOLE 40 mg Tablet [Protonix 40MG Tablet] 40 mg PO QAM 01/21/19 [History] Pediatric Multivitamin No.42 [Flintstones] 1 each PO DAILY 01/21/19 [History] glipiZIDE [Glipizide ER] 10 mg PO DAILY 01/21/19 [History] Ezetimibe 10 mg [Zetia 10 MG] 10 mg PO DAILY 02/08/23 [History] Semaglutide [Ozempic] 0.5 mg IM WEEKLY 02/08/23 [History] Hx Tetanus, Diphtheria Vaccination/Date Given: Yes Hx Influenza Vaccination/Date Given: Yes Hx Pneumococcal Vaccination/Date Given: Yes Immunizations Up to Date: Yes Travel Risk - International Travel Have you traveled outside of the country in past 3 weeks: No - Coronavirus Screening Are you exhibiting any of the following symptoms?: No Close contact with a COVID-19 positive Pt in past 14-21 Days: No - Vaccine Status Have you recieved a Covid-19 vaccination: Yes School Plant Consultant: Unknown - Vaccination Dates Dates if Unknown: ? - Review of Systems Constitutional: No Symptoms Eyes: No Symptoms Ears, Nose, & Throat: No Symptoms Respiratory: No Symptoms Cardiac: No Symptoms Abdominal/Gastrointestinal: No Symptoms Genitourinary Symptoms: No Symptoms Skin: No Symptoms Neurological: No Symptoms Psychological: No Symptoms Endocrine: No Symptoms Hematologic/Lymphatic: No Symptoms Immunological/Allergic: No Symptoms - Past Medical History Pertinent Past Medical History: Yes Neurological History: No Pertinent History Cardiac History: High Cholesterol, Hypertension Respiratory History: No Pertinent History Endocrine Medical History: Diabetes Type II Musculoskeletal History: Arthritis, Fractures, Osteoporosis GI Medical History: Diverticulitis, Gallbladder Disease - Past Surgical History Past Surgical History: Yes Gastrointestinal: Appendectomy, Cholecystectomy Female Surgical History: Hysterectomy, Tubal Ligation Other Surgical History: eye surg,retanal detachment, - Social History Smoking Status: Former smoker Exposure to second hand smoke: No Drug Use: none Patient Lives Alone: Yes - Nursing Vital Signs Nursing Vital Signs: Initial Vital Signs Temperature 97.3 F 02/08/23 10:47 Pulse Rate 80 02/08/23 10:47 Respiratory Rate 20 11/27/23 10:47 Blood Pressure 189/82 02/08/23 10:47 O2 Sat by Pulse Oximetry 95 02/08/23 10:47 Pain Scale Pain Intensity 7 Within normal limit/blood pressure not documented - Jody Coma Score Best Eye Response ([place]): (4) open spontaneously Best Verbal Response ([place]): (5) oriented Best Motor Response ([place]): (6) obeys commands [place] Total: 15 - Physical Exam General Appearance: no apparent distress Head Injury: no evidence of injury (No hematomas or palpable skull fractures) Eye Exam: PERRL/EOMI ENT Exam: airway nml (There is no otorrhea or rhinorrhea present.) Neck Exam: supple (C-spine is nontender to palpation.) Respiratory/Chest Exam: other (Right lateral thorax mild to moderate tenderness to palpation without obvious palpable rib fractures/good bilateral breath sounds.) Cardiovascular Exam: normal heart sounds (Regular rate rhythm without heaves, gallops, murmurs, or rubs.) Gastrointestinal Exam: soft (Soft, good bowel sounds all 4 quadrants, nontender to palpation) Back Exam: normal inspection (No T or L-spine tenderness palpation) Extremity Exam: other (Right shoulder moderately tender to palpation anteriorly and posteriorly/good radial pulse, distal sensation, and capillary return of right and left upper extremity. Hips nontender to palpation/legs without tenderness palpation or deformity ) Peripheral Pulses: carotid (R): 2+, carotid (L): 2+ Neurologic Exam: alert, oriented x 3, cooperative, chair caner II-XII nml as tested, normal mood/affect, nml cerebellar function, nml station & gait, sensation nml Skin Exam: normal color, warm, dry, No rash SpO2 Interpretation: normal SpO2: 95 O2 Delivery: Room Air - Course Nursing assessment & vital signs reviewed: Yes - Radiology Exams Shoulder X-ray Interpretation: Reviewed by me, Teleradiologist Report (Right humeral head fracture.) - CT Exams Chest CT Interpretation: Tele-radiologist Report (CT scan of chest without demonstrates no acute pathology.) Pelvis CT Interpretation: Tele-radiologist Report (CT of the pelvis without fracture. Some rectal inflammation noted.) Ordered Tests: Active Orders 24 hr Category Date Time Status Sling Application STAT Care 02/08/23 12:27 Active CHEST WITHOUT CONTRAST [CT] Stat Exams 02/08/23 11:09 Completed PELVIS WITHOUT CONTRAST [CT] Stat Exams 02/08/23 12:39 Completed SHOULDER Stat Exams 02/08/23 10:52 Completed Medication Summary Discontinued Medications Generic Name Dose Route Start Last Admin Trade Name Rosita PRN Reason Stop Dose Admin Ketorolac Tromethamine 30 mg 02/08/23 12:01 02/08/23 12:05 Ketorolac Tromethamine 30 Mg/Ml Inj IM 02/08/23 12:02 30 mg STAT ONE Administration Ketorolac Tromethamine Confirm 02/08/23 12:02 Ketorolac Tromethamine 30 Mg/Ml Inj Administered 02/08/23 12:03 Dose 30 mg .ROUTE .STK-MED ONE - Progress Progress Note: 02/08/23 15:20 Nursing note and vital signs reviewed. No food or housing insecurities noted. All x-ray results reviewed and shared with patient. All CT results reviewed and shared with patient. Sling to right upper extremity per nursing/neurovascular intact. 02/08/23 15:21 Patient later requested pain medication, so 30 mg IM Toradol given. 02/08/23 15:21 Patient was discharged but upon discharge, patient stated that she was developing some right hip pain. CT scan of her pelvis was done which demonstrated no hip fracture. Patient's blood pressure was elevated during her stay, but she refused all blood pressure medication during her stay. She will take her meds at home and follow her blood pressure and follow-up with her family MD. Counseled pt/family regarding: diagnosis, need for follow-up, rad results Medical Desision Making - Diagnostic Testing Radiological Interpretation: Reviewed by me, Teleradiologist Report - Risk of complications The pt has a mod risk of morbidity or mortality based on: Need for prescription drug management - Departure Departure Disposition: Home Clinical Impression: Fracture of humeral head, right, closed, Contusion, chest wall, Contusion of right hip, Hypertension Condition: Stable Critical Care Time: No Referrals: JEET VARNER MD [Primary Care Provider] - Follow up/PCP as directed Instructions: Contusion (DC), Preventing falls in adults, Shoulder Fracture (DC) Additional Instructions: Ice for 12 to 24 hours. Follow-up in orthopedic clinic Wednesday through Wednesday 8 AM to 10 AM. No appointment needed Hydrocodone as needed for pain. Please use a stool softener with the hydrocodone as narcotics can cause constipation. Follow-up with your family MD also in 1 to 2 days. Return to ER as needed. Prescriptions: Hydrocodone/Acetaminophen [Hydrocodone-Acetamin 5-325 mg] 1 each PO Q6HPRN PRN #8 tablet MDD 4 tabs PRN Reason: Pain
--- NOTE | 2023-02-08 11:56 | XRAY ---
CLINICAL HISTORY:Fall with pain COMPARISON:None TECHNIQUE:X-ray of Right shoulder, AP/external and internal rotation, Y projection (3 views). FINDINGS: A fracture line is seen at right humeral neck/greater tuberosity. Periosteal reaction is seen related to the mid-humeral shaft. No other significant abnormality. IMPRESSION: 1. A fracture line is seen at the right humeral neck/greater tuberosity, for CT assessment 2. Periosteal reaction is seen related to the mid-humeral shaft, for arm X-ray assessment. DISCLAIMER:A subtle bone abnormality or fracture may not be readily apparent on x-rays, thus clinical correlation and further imaging including follow up CT, MRI, or follow up x-rays are advised as needed. Electronically Signed by: Sage Robin MD. (02/08/2023 11:52:21 EST)
[2023-02-08] MEDS ORDERED: TORAdol 30 mg Injection IM ONE (12:01)
[2023-02-08 12:02] VITALS: RESP 16
[2023-02-08] MEDS ORDERED: TORAdol 30 mg Injection ONE (12:02)
--- NOTE | 2023-02-08 12:19 | XRAY ---
CLINICAL HISTORY:R thorax pain COMPARISON:none TECHNIQUE:Contiguous axial CT images of the chest were acquired without administration of intravenous contrast. Coronal and sagittal reconstructions were obtained. FINDINGS: Subtle fibro-atelectasis was noted in both lung bases. No evidence of pneumothorax noted The scanned pulmonary parenchyma shows no definite consolidative lesions. No free or encysted pleural effusion. Heart size is normal, and there is no pericardial effusion. No pathologically enlarged mediastinal, hilar, or axillary lymph node was identified. There is no definite mass lesion in the chest wall. The scanned upper abdomen gallbladder is missing with surgical pilar in the gallbladder fossa. No evidence of fracture was noted in the visualized scapula and proximal end of the humerus. Degenerative changes are noted in the spine. Atherosclerotic changes are noted in the visualized major mediastinal vessels. IMPRESSION: No radiologically significant abnormality noted Electronically Signed by: Sage Robin MD. (02/08/2023 12:14:55 EST)
[2023-02-08 14:41] VITALS: BP 208/80; PULSE 62
--- NOTE | 2023-02-08 15:08 | XRAY ---
CLINICAL HISTORY:R hip pin COMPARISON:None. TECHNIQUE:A CT scan of the pelvis was performed without IV contrast. Coronal and sagittal reconstructive images were obtained. FINDINGS: Both hip joints are normal. The hip joints reveal normal rounded contour. No evidence of articular collapse. Multiple osteophytes along the acetabular margins and greater femoral trochanters. Calcific lesion around the greater trochanter of the left hip suggesting calcific tendinitis. The joint spaces are normal. No loose bodies. There is no evidence of joint effusion. Bilateral sacroiliac joints appear normal. No evidence of obvious fracture noted at present examination. No lytic or sclerotic bone lesions. The visualized soft tissues are normal. Multiple sigmoid and descending colon diverticular outpouchings are noted with apparent thickening of the rectal wall and mild adjacent fat stranding in the rectal region suggestive of inflammatory changes. IMPRESSION: 1. No acute bony abnormality/injury is identified. 2. Osteophytes along the acetabular margins and greater femoral trochanters. 3. Calcific lesion around the greater trochanter of the left hip suggesting calcific tendinitis. 4. Colonic diverticulosis involving the sigmoid and descending colon without evidence of diverticulitis. Apparent thickening of the rectal wall with mild adjacent fat stranding suggestive of inflammatory changes. 5. Correlation with the clinical picture and inflammatory markers are advised. Electronically Signed by: Sage Robin MD. (02/08/2023 15:03:17 EST)
[2023-02-08 15:25] VITALS: O2SAT 95
== END 2023-02-08 15:32 | disposition home or self-care (01) ==
LOC: ED 10:25
DX: S42.291A Other displaced fracture of upper end of right humerus, initial encounter for closed fracture (principal); S70.01XA Contusion of right hip, initial encounter; S20.211A Contusion of right front wall of thorax, initial encounter; W10.1XXA Fall (on)(from) sidewalk curb, initial encounter; Y92.22 Religious institution as the place of occurrence of the external cause; I10 Essential (primary) hypertension; E78.5 Hyperlipidemia, unspecified; E11.9 Type 2 diabetes mellitus without complications; Z79.891 Long term (current) use of opiate analgesic; Z79.84 Long term (current) use of oral hypoglycemic drugs; Z79.85 Long-term (current) use of injectable non-insulin antidiabetic drugs; Z79.899 Other long term (current) drug therapy
CPT/HCPCS: 71250; 72192; 73030; 96372; 99283; J1885

== ENCOUNTER 2023-12-09 05:54 | Day surgery (SDC) | payer MEDICARE, OTHER ==
[2023-12-09] MEDS: Lactated Ringers 1,000 ML IV SCH (06:07)
[2023-12-09] MEDS ORDERED: DEXMEDETOMIDINE 80 MCG/20ML-NS IV ONE (06:22)
[2023-12-09] MEDS ORDERED: DIPRIVAN 200 MG/20 ML IV ONE ×2 (06:22→08:32)
[2023-12-09 09:07] VITALS: BP 185/72; PULSE 76; RESP 16; O2SAT 96
[2023-12-09 09:12] VITALS: TEMP 97.6
--- NOTE | 2023-12-12 12:53 | OP ---
SURGERY DATE/TIME: 12/09/2023 [id number] PREOPERATIVE DIAGNOSIS: Screening colonoscopy. POSTOPERATIVE DIAGNOSIS: 1) Normal colon. 2) Diverticulosis. 3) External hemorrhoids. PROCEDURE: Colonoscopy. SURGEON: Kwabena Goss MD ANESTHESIA: MAC. ESTIMATED BLOOD LOSS: None. SPECIMENS: None. DESCRIPTION OF PROCEDURE AND FINDINGS: After informed written consent was obtained, the patient was taken to the endoscopy suite. She was placed in a left lateral decubitus position, and then anesthesia was titrated to desired level of consciousness. Digital rectal exam showed external hemorrhoids but normal sphincter tone and no internal lesions. The scope was inserted in the rectum, and sequentially the entire colonic mucosa was traversed. The level of the cecum was reached and verified under direct visualization of the ileocecal valve. Upon withdrawal, careful mucosal inspection revealed no obvious mucosal abnormalities. Prep was noted to be fair. There were scattered diverticula throughout multiple areas of the colon. Prior to withdrawal, retroflexion was performed and showed no internal lesions. The scope was removed, and patient was transferred to the recovery room in good condition.
== END 2023-12-09 09:12 | disposition home or self-care (01) ==
LOC: SDC 05:54
PROVIDERS: ATTEND Family Medicine
DX: Z12.11 Encounter for screening for malignant neoplasm of colon (principal); K57.30 Diverticulosis of large intestine without perforation or abscess without bleeding; K64.4 Residual hemorrhoidal skin tags; E11.9 Type 2 diabetes mellitus without complications
CPT/HCPCS: 82947; 93005; G0121; J2704

== ENCOUNTER 2024-06-02 18:07 | Emergency (ER) | payer MEDICARE, OTHER ==
[2024-06-02 18:42] VITALS: RESP 18; TEMP 97.2
[2024-06-02] MEDS ORDERED: TYLENOL 325 MG ONE (19:43)
[2024-06-02] MEDS: TYLENOL 325 MG PO ONE (19:45)
[2024-06-02 20:20] VITALS: BP 199/110; PULSE 74; O2SAT 96
--- NOTE | 2024-06-02 20:42 | ERPHSYRPT ---
- History of Present Illness Time Seen by Provider: 06/02/24 19:00 Source: patient, family Exam Limitations: no limitations Patient Subjective Stated Complaint: PT HERE FOR A FALL TODAY, SHE STATES SHE TRIPPED OVER HER FEET. SHE HIT HEAD ON HER DESK, DENIES LOC . SHE IS CONCERNED WITH LACERATION TO RIGHT SIDE OF FACE Triage Nursing Assessment: PT ALERT, WALKED IN, RESP EASY, SKIN W/D/P.HAS LACERATION ABOVE RIGHT EYEBROW WITH SCANT AMOUNT OF BLEEDING. MOVES ALL EXT Physician History: This is a 78-year-old white female patient who arrives by private vehicle accompanied by family. I initially came to the room at 1900. Patient was in CAT scan suite. I returned and evaluated this patient and took a history. Patient accidentally tripped over her own feet. When she fell she hit the right side of her head and restoration area causing a small skin laceration. She denies loss of consciousness. She is not on any anticoagulation therapy. She does not know when her last tetanus shot was. She denies headache. She denies chest pain. She denies dizziness. She denies shortness of breath. She denies visual changes. Patient has a history of diabetes, hypertension and gastroesophageal reflux disease. Occurred: just prior to arrival Reason for Fall: fell from standing pos Injuries/Pain Location: head, face Loss of Consciousness: no loss of consciousness Quality: aching Severity of Pain-Max: mild Severity of Pain-Current: none Modifying Factors: Improves With: nothing Associated Symptoms (Fall): denies symptoms Allergies/Adverse Reactions: calcium Allergy (Mild, Verified 06/02/24 18:40) cola mariano Adverse Reaction (Mild, Uncoded 06/02/24 18:40) Home Medications: Carvedilol 12.5 mg [Coreg 12.5 mg] 25 mg PO BID 06/01/12 [History] Lisinopril/Hydrochlorothiazide [Lisinopril-Hctz 20-25 mg Tab] 30 mg PO DAILY 06/01/12 [History] Potassium Gluconate 99 mg PO BID 08/14/15 [History] Ascorbic Acid 500 mg [Vitamin C 500 MG] 1,000 mg PO DAILY 01/21/19 [History] Aspirin EC 325 mg [Ecotrin 325 MG] 325 mg PO BID 01/21/19 [History] Cannabidiol (Cbd) [Epidiolex] 2 sprays PO DAILY 01/21/19 [History] Gabapentin 800 mg PO TID 01/21/19 [History] Magnesium Oxide 400 mg [Mag-Ox 400] 400 mg PO DAILY 01/21/19 [History] PANTOPRAZOLE 40 mg Tablet [Protonix 40MG Tablet] 40 mg PO QAM 01/21/19 [History] Pediatric Multivitamin No.42 [Flintstones] 1 each PO DAILY 01/21/19 [History] Semaglutide [Ozempic] 0.5 mg IM WEEKLY 02/08/23 [History] Carboxymethylcellulose Sodium [Thera Tears] 1 each OP QID 06/02/24 [History] Methylcellulose [Fiber Therapy] 500 mg PO DAILY 06/02/24 [History] Multivitamin with Minerals [Hair, Skin and Nails] 1 tab PO BID 06/02/24 [History] Vitamin B Complex [B-Complex] 1 each PO DAILY 06/02/24 [History] Hx Tetanus, Diphtheria Vaccination/Date Given: Yes Hx Influenza Vaccination/Date Given: Yes Hx Pneumococcal Vaccination/Date Given: Yes Immunizations Up to Date: Yes Travel Risk - International Travel Have you traveled outside of the country in past 3 weeks: No - Emerging Infectious Disease Are you exhibiting symptoms associated with any current EIDs: No - Review of Systems Constitutional: No Symptoms Eyes: No Symptoms Ears, Nose, & Throat: No Symptoms Respiratory: No Symptoms Cardiac: No Symptoms Abdominal/Gastrointestinal: No Symptoms Genitourinary Symptoms: No Symptoms Musculoskeletal: No Symptoms Skin: Other (Small semilunar skin laceration right restoration region) Neurological: No Symptoms Psychological: No Symptoms Endocrine: No Symptoms Hematologic/Lymphatic: No Symptoms Immunological/Allergic: No Symptoms All Other Systems: Reviewed and Negative - Past Medical History Pertinent Past Medical History: Yes Neurological History: No Pertinent History ENT History: Other Cardiac History: High Cholesterol, Hypertension Respiratory History: No Pertinent History, Other Endocrine Medical History: Diabetes Type II Musculoskeletal History: Arthritis, Fractures, Osteoporosis GI Medical History: Diverticulitis, Diverticulosis, GERD, Gallbladder Disease History: No Pertinent History Psycho-Social History: No Pertinent History Female Reproductive Disorders: No Pertinent History Other Medical History: HX smoking cessation 1984, hearing loss, dentures - Past Surgical History Past Surgical History: Yes Neuro Surgical History: No Pertinent History Cardiac: No Pertinent History Respiratory: No Pertinent History Gastrointestinal: Appendectomy, Cholecystectomy Genitourinary: No Pertinent History Musculoskeletal: Other Female Surgical History: Hysterectomy, Tubal Ligation Other Surgical History: eye surg,retanal detachment, back surgery - Social History Smoking Status: Former smoker Exposure to second hand smoke: No Drug Use: none - Social Determinants of Health Will the patient participate in the screening: Declined to provide - Nursing Vital Signs Nursing Vital Signs: Initial Vital Signs Temperature 97.2 F 06/02/24 18:41 Pulse Rate 65 06/02/24 18:41 Respiratory Rate 18 06/02/24 18:41 Blood Pressure 203/90 06/02/24 18:41 O2 Sat by Pulse Oximetry 93 L 06/02/24 18:41 Pain Scale Pain Intensity 3 - [place] Coma Score Best Eye Response ([place]): (4) open spontaneously Best Verbal Response ([place]): (5) oriented Best Motor Response ([place]): (6) obeys commands Jody Total: 15 - Physical Exam General Appearance: no apparent distress, alert, anxiety Head Injury: lacerations, tenderness (Mild tenderness right restoration region in the area of skin laceration), No active bleeding, No raccoon eyes Eye Exam: PERRL/EOMI, eyes nml inspection ENT Exam: airway nml, evidence of ENT injury, nml ext.inspection, No dental injury Neck Exam: supple, trachea midline, full range of motion, normal alignment, normal inspection Respiratory/Chest Exam: normal breath sounds, No chest tenderness, No respiratory distress, No ecchymosis, No crepitus Cardiovascular Exam: normal heart sounds, regular rate/rhythm Gastrointestinal Exam: soft, normal bowel sounds, No tenderness Rectal Exam: not done Back Exam: normal inspection, normal range of motion, No CVA tenderness, No vertebral tenderness Extremity Exam: normal inspection, normal range of motion, pelvis stable Neurologic Exam: alert, oriented x 3, cooperative, geek squad agent II-XII nml as tested, nml cerebellar function, nml station & gait, sensation nml Skin Exam: laceration (Semilunar skin laceration approximately 1.4 cm in length. No active bleeding and no foreign bodies present) SpO2 Interpretation: normal SpO2: 96 O2 Delivery: Room Air Procedures - Laceration/Wound Repair Right Head Time of Procedure: 20:40 Wound Location: Right, head Wound Length (cm): 1.4 Wound's Depth, Shape: superficial, linear (Curvilinear/semilunar) Wound Explored: clean (Wound explored to the base in bloodless field. No foreign body present) Irrigated: Yes Hibiclens Prep: Yes Wound Repaired With: Steri-strips, Dermabond - Course Nursing assessment & vital signs reviewed: Yes Ordered Tests: Active Orders 24 hr Category Date Time Status CERVICAL SPINE WO CONTRAST [CT] Stat Exams 06/02/24 18:51 Taken FACIAL BONES WO CONTRAST [CT] Stat Exams 06/02/24 18:51 Taken HEAD WITHOUT CONTRAST [CT] Stat Exams 06/02/24 18:51 Taken Medication Summary Discontinued Medications Generic Name Dose Route Start Last Admin Trade Name Rosita PRN Reason Stop Dose Admin Acetaminophen 650 mg 06/02/24 19:40 06/02/24 19:45 Acetaminophen 325 Mg Tablet PO 06/02/24 19:41 650 mg STAT ONE Administration Acetaminophen Confirm 06/02/24 19:43 Acetaminophen 325 Mg Tablet Administered 06/02/24 19:44 Dose 650 mg .ROUTE .Ninite ONE - Progress Progress: improved Progress Note: 06/02/24 21:00 My medical decision making of the assignment of low to moderate complexity is based on review of the patient's past medical history, review the patient's medication list, review the patient drug allergy list, history present also and physical findings on examination. The workup in this patient includes CT scan of the head, facial bones and cervical spine. All studies are without contrast. Differential diagnosis includes was not limited to skin laceration right forehead, acute intracranial abnormality, facial fractures/contusions, cervical spine fracture/subluxation 06/02/24 21:[address] scans were performed without contrast and were interpreted by the radiologist: CT scan of the head without contrast shows no acute intracranial abnormality. There is no skull fractures. CT scan of the facial bones shows no acute fracture or dislocation. CT scan of the cervical spine shows mild C6-C7 degenerative disc disease. There are no acute fractures or subluxations. Counseled pt/family regarding: diagnosis, need for follow-up, rad results Medical Desision Making - Independent Historian Additional History obtained from: Family - Diagnostic Testing Diagnostic test were ordered, analyzed, and reviewed by me: Yes Radiological Interpretation: Reviewed by me, Teleradiologist Report - Risk of complications Low Risk: Low risk of morbidity from additional dx testing or treatment - Departure Departure Disposition: Home Clinical Impression: Fall with no significant injury, Laceration of skin of face Condition: Stable Critical Care Time: No Referrals: JEET VARNER MD [Primary Care Provider] - Follow up/PCP as directed Additional Instructions: Keep the laceration repair site dry for 24 hours. After 24 hours, may rinse the area once daily. Leave the Steri-Strips in place until they curl up and you may trim the Steri-Strips as they curl up. They will start curling up in approximately 5 to 7 days. Do not pull the Steri-Strips off. Continue your medication as prescribed.
[2024-06-02] MEDS ORDERED: Adacel Vial IM ONE (21:05)
[2024-06-02] MEDS: Adacel Vial IM ONE (21:09)
--- NOTE | 2024-06-03 08:00 | XRAY ---
Indication: Right-sided head injury/laceration following fall. Multiple contiguous axial images obtained through the head without contrast. Comparison: None Age-appropriate global atrophy and minimal periventricular degenerative micro-ischemia. No acute intracranial hemorrhage, abnormal extra-axial fluid collection, or mass effect. Fourth ventricle is midline without hydrocephalus. Cruz-white matter differentiation preserved. Bony calvarium intact. Visualized paranasal sinuses and mastoid vessels are clear. CT facial bones and CT cervical spine reported separately. Impression: Nonacute senile brain.
--- NOTE | 2024-06-03 08:02 | XRAY ---
Indication: Right-sided head injury/laceration following fall. Multiple contiguous axial images obtained through the facial bones. Sagittal and coronal reformatted images obtained. Comparison: None Patient is edentulous. No acute fracture or suspicious bone lesions. Orbits including roof, maldonado, and floors intact. Paranasal sinuses and nasal passages are clear. Mild nasal septal deviation to the left. Left orbit demonstrates 2.3 cm long tube in lacrimal duct presumed iatrogenic. Visualized noncontrasted soft tissues are unremarkable. CT head and CT cervical spine reported separately. Impression: Negative acute fracture. Incidental nasal septal deviation and left lacrimal duct tube.
--- NOTE | 2024-06-03 08:06 | XRAY ---
Indication: Right-sided head injury/laceration following fall. Multiple contiguous axial images obtained through the cervical spine. Sagittal and coronal reformatted images obtained. Comparison: None Axial images negative for acute fracture, suspicious bone lesions, or spinal canal stenosis. Mild atlantoaxial degenerative arthropathy and mild C6-C7 degenerative disc osteophyte. Facets are symmetric. Sagittal and coronal reformatted images demonstrates lordotic straightening, positional versus paraspinal spasm. C6-C7 disc space narrowing. No acute compression fracture, subluxation, or jumped facet. Normal appearing craniocervical junction. Visualized noncontrasted soft tissues demonstrates mild bilateral carotid calcifications. Lung apices clear. CT head and CT facial bones reported separately. Impression: 1. Cervical lordotic straightening, positional versus paraspinal spasm. 2. Negative acute fracture/subluxation. 3. Chronic findings including multilevel degenerative changes and carotid calcifications.
== END 2024-06-02 21:22 | disposition home or self-care (01) ==
LOC: ED 18:07
DX: S01.81XA Laceration without foreign body of other part of head, initial encounter (principal); W18.30XA Fall on same level, unspecified, initial encounter; E11.9 Type 2 diabetes mellitus without complications; I10 Essential (primary) hypertension; E78.5 Hyperlipidemia, unspecified; Z79.85 Long-term (current) use of injectable non-insulin antidiabetic drugs; Z79.899 Other long term (current) drug therapy; Z23 Encounter for immunization
CPT/HCPCS: 12001; 70450; 70486; 72125; 90471; 90715; 99284; A9270-GY

== ENCOUNTER 2024-06-21 08:16 | Day surgery (SDC) | payer MEDICARE, OTHER ==
[2024-06-21] MEDS ORDERED: TRANEXAMIC 1,000 MG/100ML-NACL 1,000 MG/100 ML PIGGYBACK IV ONE (08:24)
[2024-06-21] MEDS ORDERED: TYLENOL EXTRA STRENGTH 500 MG ONE (08:24)
[2024-06-21] MEDS ORDERED: CEFAZOLIN 2 GM/100 ML NaCl 2 GM/100 ML IVPB IV ONE (08:24)
[2024-06-21] MEDS ORDERED: celeBREX 100 MG ONE (08:25)
[2024-06-21] MEDS ORDERED: Lactated Ringers 1,000 ML IV ONE ×2 (08:25→12:28)
[2024-06-21] MEDS: TRANEXAMIC 1,000 MG/100ML-NACL 1,000 MG/100 ML PIGGYBACK IV ONE (08:34)
[2024-06-21] MEDS: CEFAZOLIN 2 GM/100 ML NaCl 2 GM/100 ML IVPB IV SCH ×2 (08:34→18:46)
[2024-06-21] MEDS: Lactated Ringers 1,000 ML IV SCH (08:34)
[2024-06-21] MEDS: celeBREX 100 MG PO ONE (08:35)
[2024-06-21] MEDS: TYLENOL EXTRA STRENGTH 500 MG PO ONE (08:35)
[2024-06-21] MEDS ORDERED: propofoL IV ONE (10:00)
[2024-06-21] MEDS ORDERED: SUBLIMAZE 100 MCG/2 ML ONE ×2 (10:00→13:40)
[2024-06-21] MEDS ORDERED: Xylocaine-Mpf 2% 5 Ml Vial ONE (10:01)
[2024-06-21] MEDS ORDERED: Zofran 4 MG/2 ML VIAL ONE (10:01)
[2024-06-21] MEDS ORDERED: PHENYLEPHRINE HCL ONE (10:11)
[2024-06-21] MEDS ORDERED: Marcaine Mpf 0.5% Vial 30 Ml ONE (10:34)
[2024-06-21] MEDS ORDERED: EXPAREL 133 MG/10 ML VIAL IJ ONE (10:34)
[2024-06-21] MEDS ORDERED: VANCOCIN INJECTION IV ONE (10:58)
[2024-06-21] MEDS ORDERED: ROCURONIUM BROMIDE IV ONE (11:11)
[2024-06-21] MEDS ORDERED: BRIDION 200MG/2ML IV ONE (12:48)
[2024-06-21] MEDS ORDERED: DILAUDID 2 MG INJECTION ONE (12:50)
[2024-06-21] MEDS ORDERED: APRESOLINE 20 MG/ML INJ ONE (13:12)
--- NOTE | 2024-06-21 14:03 | XRAY ---
Indication: Postop exam. Comparison: June 11, 2021 AP/crosstable lateral left knee demonstrates new medial hemiarthroplasty with intact prosthesis, postoperative soft tissue swelling, and soft tissue emphysema. Stable osteopenia, patella spurring, and tiny posterior fabella. No other bony, articular, or soft tissue abnormalities.
[2024-06-21] MEDS ORDERED: Sodium Chloride 0.9% 1000 ML 1,000 ML IV SCH (15:00)
[2024-06-21] MEDS ORDERED: NON-FORMULARY ITEM (Semaglutide [Ozempic] 0.25 MG/0.368 ML Pen.Injctr) IM SCH (15:15)
[2024-06-21] MEDS ORDERED: Hydromorphone 1 mg/ml Injection IV PRN (15:28)
[2024-06-21] MEDS ORDERED: MEDICATION INTERVENTION MC SCH ×4 (15:30)
[2024-06-21] MEDS: NORCO 7.5/325 MG TAB PO PRN (16:05)
[2024-06-21] MEDS ORDERED: Protonix 40MG Tablet ONE (17:29)
[2024-06-21] MEDS: Zofran 4 MG/2 ML VIAL IV PRN (17:32)
[2024-06-21] MEDS: Protonix 40MG Tablet PO ONE (17:32)
[2024-06-21] MEDS: COREG 12.5 MG PO SCH (21:27)
[2024-06-21] MEDS: Ecotrin 325 MG PO SCH (21:30)
[2024-06-21] MEDS: Neurontin PO SCH (21:31)
[2024-06-21] MEDS ORDERED: NON-FORMULARY ITEM (Potassium Gluconate [Potassium Gluconate] 500 MG Tablet) PO SCH (22:00)
[2024-06-21] MEDS ORDERED: NEURONTIN PO SCH (22:00)
[2024-06-22 04:56] VITALS: RESP 20; O2SAT 96
[2024-06-22 05:03] LABS: Hematocrit 37.8 % (34.1-44.9); Hemoglobin 12.2 g/dL (11.2-15.7); Mean Cell Volume 93.8 fL (79.4-94.8); Mean Corpuscular Hemoglobin 30.3 pg (25.6-32.2); Mean Corpuscular Hgb Concent. 32.3 g/dL (32.2-35.5); Mean Platelet Volume 10.4 fL (9.4-12.3); Platelet Count 269 x10^3/uL (182-369); Red Blood Count 4.03 x10^6/uL (3.93-5.22); Red Cell Distribution Width 13.2 % (11.7-14.4); White Blood Count 9.5 x10^3/uL (3.98-10.04)
[2024-06-22 07:27] VITALS: BP 183/81; PULSE 75; TEMP 97
[2024-06-22] MEDS ORDERED: CEFAZOLIN 2 GM/100 ML NaCl 2 GM/100 ML IVPB IV ONE (07:38)
[2024-06-22] MEDS: MAG-OX 400 PO SCH (07:45)
[2024-06-22] MEDS: Vitamin C 500 MG PO SCH (07:45)
[2024-06-22] MEDS: Protonix 40MG Tablet PO SCH (07:45)
[2024-06-22] MEDS: VITA-BEE WITH C PO SCH (07:46)
[2024-06-22] MEDS ORDERED: [UNRECOGNIZED DRUG - OTHER] PO SCH (10:00)
[2024-06-22] MEDS ORDERED: Protonix 40MG Tablet PO SCH (10:00)
[2024-06-22] MEDS ORDERED: METHYLCELLULOSE 500 MG PO SCH (10:00)
[2024-06-22] MEDS ORDERED: VITAMIN B COMPLEX PO SCH (10:00)
[2024-06-22] MEDS ORDERED: CANNABIDIOL 100 MG/ML PO SCH (10:00)
[2024-06-22] MEDS ORDERED: NON-FORMULARY ITEM (Lisinopril/Hydrochlorothiazide [Lisinopril-Hctz 20-25 Mg Tab] 1 EACH T PO SCH (10:00)
--- NOTE | 2024-06-22 11:49 | OP ---
SURGERY DATE/TIME: 06/21/2024 [id number] PREOPERATIVE DIAGNOSIS: Osteoarthritis, left knee. POSTOPERATIVE DIAGNOSIS: Osteoarthritis, left knee. PROCEDURE: Wayne basim-replacement arthroplasty, left knee, utilizing the [employer] instrumentation, with a size medium femoral component cemented, a size C tibial component cemented, and a 5 mm mobile polyethylene bearing tray. SURGEON: Luis Alberto Sheets II, DO ANESTHESIA: Spinal with block for postop pain control. DESCRIPTION OF PROCEDURE AND FINDINGS: The patient was identified, and informed consent was obtained. The patient was taken to the operative suite where the block was administered followed by the spinal anesthetic. Once an appropriate level of anesthesia had been obtained, a tourniquet was placed high on the left thigh. The left lower extremity was then prepped and draped in the usual sterile fashion. The leg was then placed into the [place] knee [place]. A standard time-out was taken. Following this, the leg was exsanguinated and the tourniquet was then elevated to 350 mmHg. A standard midline incision was accomplished on the superior pole of the patella to the level of the tibial tubercle. Skin was incised. Dissection was carried out through the subcutaneous tissue. Retractors were positioned, and then with a fresh #10 blade, a standard medial parapatellar incision was then accomplished. Upon entering the joint, grade 1 synovial fluid was encountered. At this point, retractors were positioned, the knee was inspected. The patient had some very mild degenerative changes noted in the lateral compartment. On the patellofemoral joint, there was 1 small area on the lateral femoral condyle that had some raw bone; however, this was not in a typical weightbearing region. The medial femoral condyle and tibial plateau had hard eburnated bone throughout the entire weightbearing surface with osteophytes noted. The patient's anterior cruciate ligament was noted to be intact. Given the findings, we felt that the patient was a good candidate for a basim-replacement arthroplasty. At this point then, a portion of the medial meniscus was excised. A Z retractor was positioned medially. Patella was gently retracted out of harm's way. The femoral cutting guide was then applied. At this point then, the 2 drill holes were made in the distal femur. The captured posterior cutting block was then applied, and the posterior cut was accomplished on the femur. The wafer of bone was removed, and at this point then, the attention was turned to the tibia where any remaining portion of meniscus was excised. The guide was placed and held with its pins. The reciprocating saw was used to make the vertical cut. The cutting block was then changed, and the proximal wafer of tibia was then excised utilizing the oscillating saw. It was deemed that a size C tibial component would be the appropriate size. Our attention was turned back to the femur where the 0 spigot was used to mill the distal femur with the appropriate cutting block. Trial reduction of the femur and tibia showed that the flexion gap was 5 mm with the joint at 90 degrees of flexion and 0 with the knee in extension. Thus, 4 mm of distal femur required milling. The 4 spigot was applied, and the milling device was utilized to mill the distal femur. After this, trial reduction showed that the 4 paddle fit very nicely. The 5 paddle was slightly tight in extension but fit very nicely in flexion. The trial femur was removed, and the small drill holes were created around the femur for interdigitation of the cement with the drill. The tibial guide was then held in position with the nail, and the toothbrush-type saw blade was utilized to cut for the keel. The special curette was utilized to curette debris from the keel, and at this point, the knee was then irrigated. A trial reduction with the keel component and the trial femoral component showed that a size 5 was the appropriate size to give good soft tissue balance in flexion as well as full extension. Any osteophytes were removed at this point. Anteriorly, the osteophytes were removed so that there was no impingement with extension. Posteriorly, the osteophytes had been removed. Trial instrumentation had all been removed. The joint was then copiously irrigated, and the cement was vacuum mixed in the cement gun. The tibial component was then cemented into position. Excess cement was removed during the curing process. The femoral component was also cemented into position, and with the knee at 45 degrees of flexion, the 5 paddle was placed and the knee was held still until the cement had fully cured. Again, all excess cement was removed during the curing process. At this point then, trial reduction with the dish component again showed the 5 mm poly to be the appropriate size. Trial was removed, and the joint was irrigated. The permanent component was then inserted into position with digital pressure from the screen operator's finger. The joint was then irrigated and closed with #2 Stratafix, 2-0 Monocryl, and 3-0 subcuticular Stratafix augmented with Dermabond and Prineo. An Aquacel dressing was applied. The patient was transferred to the bed and taken to recovery room in satisfactory condition having tolerated the procedure well.
== END 2024-06-22 10:59 | disposition home or self-care (01) ==
LOC: SDC 08:16 → MED SURG 12:20 → SDC 06-22 10:59
PROVIDERS: ATTEND Orthopaedic Surgery
DX: M17.12 Unilateral primary osteoarthritis, left knee (principal); I10 Essential (primary) hypertension
CPT/HCPCS: 27446; 36415; 64447; 73560; 76937; 85027; J0360; J0666; J0690; J1171; J2371; J2405; J2704; J3010; J3370; A9270-GY